=== PATIENT | female | born 1965 | race Caucasian/White ===

== ENCOUNTER → 2016-11-09 | Outpatient (CLI) | payer OTHER | LOC: FIMAGING 15:35 | PROVIDERS: ATTEND Family Medicine | DX: Z12.31 Encounter for screening mammogram for malignant neoplasm of breast (principal) | CPT/HCPCS: G0202 ==

== ENCOUNTER 2017-08-07 10:49 | Inpatient (IN) | payer OTHER ==
--- NOTE | 2017-08-07 11:33 | EDPHY ---
H & P Stated Complaint: "Ulcerative colitis" symptoms for 1 month. Time Seen by Provider: 08/07/17 11:17 HPI/ROS: CHIEF COMPLAINT: "Ulcerative colitis flare" HISTORY OF PRESENT ILLNESS: 52-year-old female history of ulcerative colitis, S2 of psoriasis and psoriatic arthritis states that in May she was started on Cosentix for her psoriasis. She received a total of 4 treatments over 4 weeks and states that since completing this this exacerbated her ulcerative colitis symptoms. For the past 1 month she has been experiencing intractable bloody diarrhea, has been unable to eat secondary to causing abdominal discomfort, cramping and diarrhea which occurs usually within 10 min of having any food product. She was started on prednisone 40 mg daily 1 month ago by her dovetail machine operator and remains symptomatic.She feels that she is nonadequately hydrated and nourished. PRIMARY CARE PROVIDER: Deisy Diaz. Primary gastroenterology: [facility] REVIEW OF SYSTEMS: A ten point review of systems was performed and is negative with the exception of the items mentioned in the HPI PAST MEDICAL & SURGICAL HISTORY: Ulcerative colitis. Psoriasis. Psoriatic arthritis. SOCIAL HISTORY: PHYSICAL EXAM (Prior to examination, patient consented to physical exam, hands were washed and my usual and customary physical exam procedures followed) 1) GENERAL: thin, alert and oriented. Appears to be in no acute distress. 2) HEAD: Normocephalic, atraumatic 3) HEENT: Pupils equal, round, reactive to light bilaterally. Sclera anicteric. Nasopharynx, oropharynx, clear, no lesions. Dry mucous membrane 4) NECK: Full range of motion, no meningeal signs. 5) LUNGS: Clear auscultation bilaterally, no wheezes, no rhonchi, no retractions. 6) HEART: Regular rate and rhythm, no murmur, no heave, no gallop. 7) ABDOMEN: No guarding, no rebound, no focal tenderness, negative McBurney's, negative Mckeon's, negative Rovsing's, negative peritoneal sign, unable to elicit abdominal pain on exam 8) MUSCULOSKELETAL: Moving all extremities, no focal areas of tenderness, no obvious trauma. No peripheral edema or discoloration. 9) BACK: No CVA tenderness, no midline vertebral tenderness, no fluctuance, no step-off, no obvious trauma, no visual or palpable abnormality. 10) SKIN: No rash, no petechiae. 11) Psychiatric: Patient is oriented X 3, there is no agitation. DIFFERENTIAL DIAGNOSIS: In no particular include but limited to GI bleed, ulcerative colitis flare, acute surgical abdominal pathology - Personal History LMP (Females 10-55): Irregular Current Tetanus Diphtheria and Acellular Pertussis (TDAP): Yes - Medical/Surgical History Hx Asthma: No Hx Chronic Respiratory Disease: No Hx Diabetes: No Hx Cardiac Disease: No Hx Renal Disease: No Hx Cirrhosis: No Hx Alcoholism: No Hx HIV/AIDS: No Hx Splenectomy or Spleen Trauma: No Other PMH: Ulcerative colitis. Psoriasis. - Social History Smoking Status: Never smoked Constitutional: Initial Vital Signs Temperature (C) 36.9 C 08/07/17 10:54 Heart Rate 102 H 08/07/17 10:54 Respiratory Rate 16 08/07/17 10:54 Blood Pressure 110/87 H 08/07/17 10:54 O2 Sat (%) 95 08/07/17 10:54 O2 Delivery Mode Room Air Allergies/Adverse Reactions: gluten Allergy (Verified 08/07/17 10:59) Home Medications: Medication Instructions Recorded Prednisone 08/07/17 Medical Decision Making ED Course/Re-evaluation: 12:50 p.m.: Patient has been re-evaluated with serial examinations. She provided a stool sample in the ER which was grossly bloody. I will contact gastroenterology and plan on likely admission. Care of patient under supervision of secondary supervising physician Dr Guan . 12:53 p.m.: Consultation Dr. Allen Schulte who agrees to consultation 1:10 p.m.: Consultation with hospitalist Sabrina, admit to Dr. Dominic Alvarez - Data Points Laboratory Results: Laboratory Results 08/07/17 11:05 08/07/17 11:05 08/07/17 08/07/17 08/07/17 12:17 11:05 11:05 WBC RBC Hgb Hct MCV MCH MCHC RDW Plt Count MPV Neut % (Auto) Lymph % (Auto) [place] % (Auto) Eos % (Auto) Baso % (Auto) Nucleat RBC Rel Count Absolute Neuts (auto) Absolute Lymphs (auto) Absolute Monos (auto) Absolute Eos (auto) Absolute Basos (auto) Absolute Nucleated RBC Immature Gran % Seg Neutrophils % Band Neutrophils % Lymphocytes % Monocytes % Immature Gran # Absolute Seg Neuts Absolute Band Neuts Absolute Lymphocytes Absolute Monocytes Platelet Estimate Polychromasia PT 14.2 SEC SEC (12.0-15.0) INR 1.08 (0.83-1.16) APTT 24.4 SEC SEC (23.0-38.0) Sodium Potassium Chloride Carbon Dioxide Anion Gap BUN Creatinine Estimated GFR Glucose Calcium Total Bilirubin Conjugated Bilirubin Unconjugated Bilirubin AST ALT Alkaline Phosphatase Total Protein Albumin Lipase Beta HCG, Qual NEGATIVE Stool Occult Bld Scrn POSITIVE H (NEGATIVE) 08/07/17 08/07/17 11:05 11:05 WBC 15.98 10^3/uL H 10^3/uL (3.80-9.50) RBC 4.13 10^6/uL L 10^6/uL (4.18-5.33) Hgb 12.8 g/dL g/dL (12.6-16.3) Hct 37.1 % L % (38.0-47.0) MCV 89.8 fL fL (81.5-99.8) MCH 31.0 pg pg (27.9-34.1) MCHC 34.5 g/dL g/dL (32.4-36.7) RDW 12.1 % % (11.5-15.2) Plt Count 391 10^3/uL 10^3/uL (150-400) MPV 9.7 fL fL (8.7-11.7) Neut % (Auto) [employer] Lymph % (Auto) [employer] [place] % (Auto) [employer] Eos % (Auto) [employer] Baso % (Auto) [employer] Nucleat RBC Rel Count [employer] Absolute Neuts (auto) [employer] Absolute Lymphs (auto) [employer] Absolute Monos (auto) [employer] Absolute Eos (auto) [employer] Absolute Basos (auto) [employer] Absolute Nucleated RBC [employer] Immature Gran % [employer] Seg Neutrophils % 42 % % Band Neutrophils % 54 % % Lymphocytes % 3 % % Monocytes % 1 % % Immature Gran # [employer] Absolute Seg Neuts 6.71 10^/uL H 10^/uL (1.70-6.50) Absolute Band Neuts 8.63 10^3/uL H 10^3/uL (0.00-0.70) Absolute Lymphocytes 0.48 10^3/uL L 10^3/uL (1.00-3.00) Absolute Monocytes 0.16 10^3/uL L 10^3/uL (0.30-0.80) Platelet Estimate ADEQUATE (ADEQ) Polychromasia 1+ H PT INR APTT Sodium 134 mEq/L L mEq/L (135-145) Potassium 3.9 mEq/L mEq/L (3.5-5.2) Chloride 97 mEq/L mEq/L (97-110) Carbon Dioxide 25 mEq/l mEq/l (22-31) Anion Gap 12 mEq/L mEq/L (8-16) BUN 12 mg/dL mg/dL (7-23) Creatinine 0.7 mg/dL mg/dL (0.6-1.0) Estimated GFR > 60 Glucose 101 mg/dL H mg/dL (70-100) Calcium 8.9 mg/dL mg/dL (8.5-10.4) Total Bilirubin 0.7 mg/dL mg/dL (0.1-1.4) Conjugated Bilirubin 0.5 mg/dL mg/dL (0.0-0.5) Unconjugated Bilirubin 0.2 mg/dL mg/dL (0.0-1.1) AST 14 IU/L IU/L (14-46) ALT 25 IU/L IU/L (9-52) Alkaline Phosphatase 86 IU/L IU/L (38-126) Total Protein 6.5 g/dL g/dL (6.3-8.2) Albumin 3.2 g/dL L g/dL (3.5-5.0) Lipase 43 IU/L IU/L (23-300) Beta HCG, Qual Stool Occult Bld Scrn Medications Given: Discontinued Medications Sodium Chloride (Ns) 1,000 mls @ 0 mls/hr IV ONCE ONE PRN Reason: Wide Open Stop: 08/07/17 12:48 Last Admin: 08/07/17 12:51 Dose: 1,000 mls Departure - Departure Disposition: [facility] Inpatient Acute Clinical Impression: GI bleed Qualifiers: GI bleed type/associated pathology: unspecified gastrointestinal hemorrhage type Qualified Code(s): K92.2 - Gastrointestinal hemorrhage, unspecified Ulcerative colitis Qualifiers: Ulcerative colitis location: other ulcerative colitis Digestive disease complication type: other complication Qualified Code(s): K51.818 - Other ulcerative colitis with other complication Condition: Fair Referrals: Deisy Lima MD [Primary Care Provider] - As per Instructions
[2017-08-07 11:38] LABS: PLATELET COUNT 391 10^3/uL (150-400)
[2017-08-07] MEDS ORDERED: NS 1,000 ML IV ONE (12:47)
[2017-08-07 13:06] LABS: INR 1.08 (0.83-1.16); PROTIME(PATIENT) 14.2 SEC (12.0-15.0)
--- NOTE | 2017-08-07 14:24 | GCON ---
[f rep st] CONSULTATION DATE OF CONSULTATION: 08/07/2017 REQUESTING PHYSICIAN: Sabrina Brannon NP REASON FOR CONSULTATION: Diarrhea, hematochezia, abdominal pain. Dear Sabrina: Thank you very kindly for asking me to evaluate your patient in consultation for a chief complaint of bloody diarrhea. She is a pleasant 52-year-old female with left-sided ulcerative colitis who has be en placed on prednisone through my practice about 4 weeks ago for a flare of colitis. She has been p rogressively worsening despite the use of 40 mg of prednisone daily. She describes multiple frequent bowel movements with urgency and blood. There is left lower quadrant abdominal pain and she has als o reported a low-grade fever. Having a bowel movement seems to escalate the discomfort and then it c an improve. She has been suffering with a poor appetite and been losing weight because every time sh e eats she has diarrhea. She denies any foreign travel or recent antibiotic use. In regard to her ulcerative colitis, her last flexible sigmoidoscopy was done in early July by Dr. Kory Castellnaos and disclosed left-sided colitis of moderate severity to the extent of the exam which was to the sigmoid colon. Her previous only other completed total colonoscopy was in [address] Radha fisher and revealed colitis involving the sigmoid and rectum and maybe part of the descending colon, b ut was otherwise unremarkable. Biopsies of both the colonoscopy and flexible sigmoidoscopy are consi stent with inflammatory bowel disease of moderate activity. The patient has been on Enbrel for psori atic arthritis and psoriasis as well as Humira. However, these resulted in a peripheral neuropathy a nd had to be discontinued. This more recent bout of ulcerative colitis flare seemed to be triggered by the initiation of a new biologic for her psoriasis, which has since been discontinued. She has be en using Canasa suppositories once at each evening, but is not able to hold the suppository in for ve ry long and does not feel these have been effective. She has been nauseous, but has had no vomiting. I am asked to assist with further evaluation and management. PAST MEDICAL HISTORY: Significant for 1. Cutaneous psoriasis. 2. Psoriatic arthritis. 3. Left-sided ulcerative colitis. SURGICAL HISTORY: None. MEDICATIONS ON ADMISSION: Include multivitamin, some nutritional supplements. She had been on Apris o 4 pills once daily recently, but this was discontinued. Canasa suppositories 1 g p.r. at bedtime f or the last 6 days, prednisone 40 mg daily. Recently Cosentyx started for psoriasis and received a to anita of 4 treatments, but this has been discontinued. ALLERGIES: Humira, Enbrel, Cosentyx, gluten. SOCIAL HISTORY: No tobacco. No alcohol. No substance abuse. 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 She has 1 child. She lives in [place]. FAMILY HISTORY: Negative for Crohn disease, celiac disease, or ulcerative colitis. REVIEW OF SYSTEMS: CONSTITUTIONAL: Malaise, fatigue, subjective fever and chills. HEENT: Denies he adache, visual disturbances, rhinorrhea, sore throat, ear pain. PULMONARY: Negative for cough, short ness of breath. CARDIOVASCULAR: Negative for chest pain or palpitations. GI: Significant for diar amrita, hematochezia, urgency, tenesmus, left lower quadrant pain and nausea. She denies heartburn or dysphagia. There has been no vomiting. She denies any melena. RHEUMATOLOGIC: She reports having clarita int pain, but this has been stable and she manages this "with diet." She denies any focal joint swel ling, tenderness or warmth. DERMATOLOGIC: She reports psoriasis that is still active and mostly on h er lower extremities. NEUROLOGIC: Denies any active paresthesias, but has noted this with previous biologic therapies. No focal motor weakness. No seizure. No falls. No tremor. GENITOURINARY: No hematuria or dysuria. No flank pain. GYNECOLOGIC: No vaginal bleeding or discharge. PSYCHIATRIC: She has been having insomnia and some anxiety since starting prednisone. PHYSICAL EXAM: VITAL SIGNS: Blood pressure is 100/59 with a mean arterial pressure of 72, heart rat e is between 70 and 100 with improvement of her heart rate to 73 with IV fluid resuscitation. Oxygen ation is 96% on room air. Respirations are 16. Temperature is 36.9. GENERAL: Pale, somewhat chronic ally ill-appearing female but no acute distress. HEENT: Normocephalic, atraumatic. Oropharynx bobby r. Mucous membranes are slightly dry. Nasal mucosa is normal. Oropharynx is clear. NECK: Supple. No lymphadenopathy to the anterior cervical chain. PULMONARY: Clear to auscultation bilaterally. CARDIOVASCULAR: Regular rate and rhythm rate and rhythm without murmur, rub, or gallop. GI: The abd omen is soft and nontender. Normal bowel sounds. No rebound or guarding. No organomegaly, ascites, or abdominal bruit. No herniation. EXTREMITIES: No cyanosis, clubbing, edema. Normal gait and st ation. NEUROLOGIC: Alert to person, place, and time. Cranial nerves are normal. DATABASE: Includes the following: White blood count is 15.9, hematocrit 37.1, platelets are 391. IN R is 1.08 with a PT of 14.2, PTT is 24.4. Stool is positive for occult blood. Sodium is 134, potass ium 3.9, chloride 97, bicarbonate 25, BUN 12, creatinine 0.7, glucose 101, calcium 8.9, total bilirub in 0.7 with a conjugated of 0.5, AST 14, ALT 25, alkaline phosphatase 86, albumin 3.2, lipase 43. Be ta HCG is negative. IMPRESSION: 1. Left lower quadrant abdominal pain. 2. Hematochezia. 3. Chronic diarrhea. 4. Psoriatic arthritis. 5. Cutaneous psoriasis. 6. Ulcerative colitis, left-sided. RECOMMENDATIONS: 1. Admit to hospital for IV fluid resuscitation and initiation of IV Solu-Medrol 40 mg IV q.6. 2. Discontinue oral prednisone. 3. Discontinue Canasa suppositories. 4. Stool PCR and culture. 5. Clear liquid diet with advancement as tolerated but I think I would leave her on clear liquids fo r today just to help more with comfort and hydration and not advance her diet too much as this may wo rsen her diarrhea. 6. If she fails to improve within the next 24-48 hours, a colonoscopy will be repeated to assess the degree and severity of her disease and obtain tissue biopsies to exclude other causes and to help as sess diagnostic certainty of her illness. 7. If she improves with IV Solu-Medrol, I would again bridge her back to oral prednisone and then tr y to initiate an outpatient plan for Remicade therapy as long as her disease seemed to be consistent with active ulcerative colitis as the cause. This will need to be considered carefully as she did de velop neuropathy with both Humira and Enbrel. 8. Discontinue all mesalamine preparations at the current time as sometimes these can paradoxically worsen diarrhea. 9. A.m. CBC and chemistries. 10. Further recommendations to follow. /[id number]/MODL
[2017-08-07] MEDS ORDERED: HYDROCODONE/APAP 5/325 TAB PO PRN (15:55)
[2017-08-07] MEDS ORDERED: LORazepam 2 MG/ML INJ IVP PRN (15:55)
[2017-08-07] MEDS ORDERED: PROMETHAZINE HCL 25 MG/ML INJ IVP PRN (15:55)
[2017-08-07] MEDS ORDERED: HYDROmorphone HCL/NS 0.5 MG/ML SYR IVP PRN (15:55)
[2017-08-07] MEDS ORDERED: NS W/ 20 KCl/L 1,000 ML IV SCH (16:00)
[2017-08-07] MEDS: methylPREDNISolone SOD SUCC 40 MG/ML VIAL IVP SCH ×2 (17:55→23:33)
--- NOTE | 2017-08-07 18:50 | GHP ---
[f rep st] HISTORY AND PHYSICAL DATE OF ADMISSION: 08/07/2017 CHIEF COMPLAINT: Hematochezia and abdominal pain. HISTORY OF PRESENT ILLNESS: The patient is a pleasant 52-year-old female with a past medical history of ulcerative colitis, psoriasis, and psoriatic arthritis, who presented to the [facility] Emergency Room after several weeks of frequent bowel movements and bloody stools. She states, in early May, she was started on Cosentyx for her psoriasis. It was shortly after that time sh e started developing worsening abdominal symptoms including bloody stools. She states her stools hav e been rather frequent, occurring 10-15 times per day. She has had some associated chills at times. She has not taken any antibiotic therapy over the past several months. With the persistence of her symptoms, she did schedule a consult with her production material handler approximately [address] arted on prednisone. Despite this, however, her symptoms have persisted. Dr. Schulte was consulted in the emergency room, and patient has been started on Solu-Medrol 40 mg IV q.6 hours. A GI pathogen p santos has also been ordered as well for further investigation. PAST MEDICAL HISTORY: 1. Ulcerative colitis. 2. Psoriasis. 3. Psoriatic arthritis. PAST SURGICAL HISTORY: . MEDICATIONS: 1. Prednisone 40 mg daily, started approximately 1 month ago. 2. Mesalamine 1000 mg per rectum nightly. 3. Melatonin 3 mg nightly. 4. Cosentyx recently started in early May, but stopped at this time. ALLERGIES: 1. Gluten. 2. Potato. FAMILY HISTORY: Mother and father are both living. Her father has a history of obesity and hyperten marck. Her mother has a history of lymphoma. SOCIAL HISTORY: The patient is . She has 1 child. She is a nonsmoker. She does not drink a lcohol. 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 REVIEW OF SYSTEMS: CONSTITUTIONAL: Positive for chills. ENT: No recent upper respiratory illnesse s. CARDIOVASCULAR: No complaints of chest pains, palpitations, or syncopal episodes. RESPIRATORY: No complaints of shortness of breath or pleuritic-type chest pains. GI: Positive for frequent stoo ls, bloody in nature, lower abdominal cramping. No nausea or vomiting. : No report of any diffic ulty with urination. NEUROLOGIC: No complaints of headaches or focal weakness. HEMATOLOGIC: No hi story of any prior deep vein thrombosis or pulmonary embolism. PSYCHIATRIC: No history of anxiety o r depression. ENDOCRINE: No history of thyroid abnormalities or diabetes. SKIN: Other than psoria tic arthritis, no recent different skin rashes. MUSCULOSKELETAL: No focal joint pain complaints tod ay. PHYSICAL EXAM: VITAL SIGNS: Temperature 36.9, blood pressure 100/59, heart rate 73, respirations 16 , saturating 96% on room air. GENERAL: The patient appears mildly uncomfortable. No acute distress . However, she is awake, alert, conversant, able to provide a good history. HEENT: Extraocular mov ements intact. Pupils equal. No scleral icterus is noted. NECK: Supple. No adenopathy. CHEST: Clear on auscultation. Normal respiratory effort. HEART: Regular rate and rhythm. No murmurs note d. ABDOMEN: Nondistended. Bowel sounds are hyperactive. Tenderness in the left lower quadrant but nontender throughout. No rebound tenderness present. : No Hoyt catheter in place. EXTREMITIES: No significant pitting edema. NEUROLOGIC: Cranial nerves 2-12 are grossly intact with 5/5 strengt h in extremities. LABS: White blood cell count is 15, hemoglobin 12, platelets 391. Sodium 134, potassium 3.9, chlori de 97, bicarb 25, BUN 12, creatinine 0.7, glucose 101. INR is 1.0, PTT 24. AST 14, ALT 25, alkaline phosphatase 86, bilirubin is 0.7. ASSESSMENT AND PLAN: 1. Ulcerative colitis flare. I appreciate Dr. Schulte's assistance on the case. Solu-Medrol has been started. A GI pathogen panel, as well, has been ordered for further assessment. I have started int ravenous fluids. The patient has a clear liquid diet, at the current time. Repeat labs have been or dered for the morning for reassessment. 2. Leukocytosis, possibly steroid effect. She has been on prednisone recently. Monitor for any fev ers. 3. Psoriasis. May need to consider alternative treatment regimens besides Cosentyx if this is felt to play a role with her worsening ulcerative colitis symptoms. 4. Deep vein thrombosis prophylaxis. No Lovenox or heparin in light of bleeding. Compression devic es are in place currently. DISPOSITION: I will admit her under inpatient status as it will likely take more than 2 midnights to stabilize her situation. /[id number]/MODL
[2017-08-07] MEDS ORDERED: NS 1,000 ML IV SCH (19:30)
[2017-08-07] MEDS: MELATONIN 3 MG TAB PO SCH (20:19)
[2017-08-08] MEDS: methylPREDNISolone SOD SUCC 40 MG/ML VIAL IVP SCH ×4 (06:14→23:25)
[2017-08-08 08:16] LABS: PLATELET COUNT 386 10^3/uL (150-400)
--- NOTE | 2017-08-08 09:33 | PDMN ---
Medical Necessity Medical necessity: M565 inflammatory bowel disease: A-2 days: bloody diarrhea, abd pain, freq bloody stools, further monitoring and tx needed including, IV fluids, IV solumedrol, clear diet, further labs in am., leukocytosis, psoriasis , anticipate > 2 midnights med nec tx.
--- NOTE | 2017-08-08 10:35 | SOAPPROG ---
SOAP Progress Note Assessment/Plan: Assessment: 1. UC flair 2. Hematochezia 3. Abdominal pain LLQ 4. Diarrhea Plan: 1. Continue IV solumedrol unchanged today 2. AM CBC and lytes 3. Advance diet today 4. Discussion about possible remicaid treatment with patient today as a future option for UC and psoriasis. 5. Will follow 08/08/17 10:32 Subjective: CC: Diarrhea Improved. Slept 34 hours. Ate liquid diet well. No N/V or fever. Much improved with hematochezia. Less abdominal pain Objective: Vital Signs Temp Pulse Resp BP Pulse Ox 36.7 C 69 12 108/70 98 08/08/17 07:41 08/08/17 07:41 08/08/17 07:41 08/08/17 07:41 08/08/17 07:41 Microbiology 08/07/17 17:23 Gastrointestinal Tract Panel (PCR) - Final Stool No Organism Detected Laboratory Results 08/08/17 08:09 08/08/17 08:09 08/07/17 08/08/17 08/09/17 05:59 05:59 05:59 Intake Total 1999 1245 Balance 1999 1245 PT 14.2 SEC (12.0-15.0) 08/07/17 11:05 INR 1.08 (0.83-1.16) 08/07/17 11:05 Physical Exam - Physical Exam General Appearance: WD/WN, no apparent distress EENT: normal ENT inspection, No scleral icterus (R), No scleral icterus (L) Neck: supple Respiratory: lungs clear Cardiac/Chest: regular rate, rhythm Abdomen: normal bowel sounds, non-tender, soft, No distended, No guarding, No rebound Back: Normal inspection Skin: warm/dry, pallor, No jaundice Extremities: No pedal edema Neuro/Psych: normal mood/affect, oriented x 3 ICD10 Worksheet Patient Problems: Problems Problem Status Onset GI bleed Acute Ulcerative colitis Acute
--- NOTE | 2017-08-08 11:27 | ASMTCASEMG ---
Living Arrangements What is your living Answers: With Spouse arrangement? Who do you live with? Type Of Residence What kind of residence do Answers: House you live in? Discharge Plan Comments Coordination Status Comments Notes: Pt is a 52 y/o female admitted for ulcerative colitis flare and a GI bleed. Pt will most likely d/c independent when medically stable. No therapies ordered at this time. CM to follow. Plan: TBD Date Signed: 08/08/2017 11:26 AM Electronically Signed By:JULES Haynes
--- NOTE | 2017-08-08 12:32 | HOSPPROG ---
Hospitalist Progress Note Assessment/Plan: This is a 52 y/o female who presents with bloody stools and abd pain. She had chills. She has a past medical hx of ulcerative colitis, psoriasis, psoriatic arthritis. She did see her voice over artist who started her on prednisone one month ago, but she continued to have frequent bowel movements. This is my first encounter with the patient. Chart reviewed. #ulcerative colitis exacerbation -GI consult -IV methylprednisone -ADAT to regular -having less stools today #leukocytosis -likely related to above -GI PCR negative -recheck labs in am #hematochezia -Stool Occult Blood positive -recheck CBC in am #Anemia -likely r/t to above -follow -recheck CBC in am #Psoriasis -holding Cosentyx -monitor skin #underweight w a BMI of 18 -fibrous wallboard inspector came to see her #DVT prophylaxis -enoxaparin/heparin contraindicated -continue SCDs and ambulation Plan: Discussed/coordinated care with Dr. Schulte. Continue above treatment. Subjective: Pt states she feels better, reports less blood in her stool, and less frequent bowel movements. Objective: Vital Signs Temp Pulse Resp BP Pulse Ox 36.6 C 67 16 106/66 96 08/08/17 11:10 08/08/17 11:10 08/08/17 11:10 08/08/17 11:10 08/08/17 11:10 Microbiology 08/07/17 17:23 Gastrointestinal Tract Panel (PCR) - Final Stool No Organism Detected Laboratory Results 08/08/17 08:09 08/08/17 08:09 08/07/17 08/08/17 08/09/17 05:59 05:59 05:59 Intake Total 1999 1245 Balance 1999 1245 PT 14.2 SEC (12.0-15.0) 08/07/17 11:05 INR 1.08 (0.83-1.16) 08/07/17 11:05 - Physical Exam Constitutional: no apparent distress, other (thin) Eyes: PERRL Cardiovascular: regular rate and rhythym Respiratory: clear to auscultation Gastrointestinal: normoactive bowel sounds, tenderness (LLQ to light palpation) , other (nondistended, soft, flat abdomen) Skin: warm, other (red, dry patches localized to BLE), No normal color (pale) Musculoskeletal: full muscle strength Neurologic: AAOx3 Psychiatric: interacting appropriately ICD10 Worksheet Patient Problems: Problems Problem Status Onset GI bleed Acute Ulcerative colitis Acute
[2017-08-08] MEDS: MELATONIN 3 MG TAB PO SCH (20:20)
[2017-08-09] MEDS: methylPREDNISolone SOD SUCC 40 MG/ML VIAL IVP SCH ×3 (05:23→18:22)
[2017-08-09] MEDS: ACETAMINOPHEN 325 MG TAB PO PRN (05:23)
--- NOTE | 2017-08-09 13:03 | HOSPPROG ---
Hospitalist Progress Note Assessment/Plan: This is a 52 y/o female who presents with bloody stools and abd pain. She had chills. She has a past medical hx of ulcerative colitis, psoriasis, psoriatic arthritis. She did see her cleat maker who started her on prednisone one month ago, but she continued to have frequent bowel movements. This is my first encounter with the patient. Chart reviewed. 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 Schulte. Continue above treatment. Subjective: Having some pain and discomfort. Afraid to eat. Objective: Vital Signs Temp Pulse Resp BP Pulse Ox 36.5 C 57 L 16 115/71 99 08/09/17 11:53 08/09/17 11:53 08/09/17 11:53 08/09/17 11:53 08/09/17 11:53 Laboratory Results 08/09/17 05:08 08/09/17 05:08 08/08/17 08/09/17 08/10/17 05:59 05:59 05:59 Intake Total 1999 1245 Balance 1999 1245 PT 14.2 SEC (12.0-15.0) 08/07/17 11:05 INR 1.08 (0.83-1.16) 08/07/17 11:05 - Physical Exam Constitutional: appears nourished, chronically ill appearing, uncomfortable Eyes: PERRL, anicteric sclera, EOMI Ears, Nose, Mouth, Throat: moist mucous membranes, hearing normal, ears appear normal Cardiovascular: No JVD, No tachycardia, No edema Respiratory: no respiratory distress, no rales or rhonchi, clear to auscultation Gastrointestinal: tenderness, No ascites, No guarding Skin: warm, normal color, No mottled Musculoskeletal: normal joint ROM, no joint effusions, generalized weakness Neurologic: AAOx3 Psychiatric: interacting appropriately, not anxious, not encephalopathic, thought process linear ICD10 Worksheet Patient Problems: Problems Problem Status Onset GI bleed Acute Ulcerative colitis Acute
--- NOTE | 2017-08-09 15:32 | SOAPPROG ---
SOAP Progress Note Assessment/Plan: Assessment: 1. UC flair 2. Hematochezia 3. Abdominal pain LLQ 4. Diarrhea Plan: 1. Continue IV solumedrol 40mg IV q6hrs 2. AM CBC and lytes in AM 3. Advance diet today 4. Discussion about possible remicaid treatment with patient today as a future option for UC and psoriasis. 5. Will consider IV iron to help bolster Hct and improve anemia 6. If fails to improve will need a repeat colonoscopy with biopsy and discussions based on these findings of initiation of induction therapy with remicaid 7. Plan discussed with hospitalist Erica Guerra. 8. Will add canasa suppositories 1 NC BID 08/09/17 15:32 08/09/17 15:58 Subjective: CC: Ongoing diarrhea and bloody bowel movement. Stool PCR negative. Eating but still feels fatigued. Objective: Vital Signs Temp Pulse Resp BP Pulse Ox 36.5 C 57 L 16 115/71 99 08/09/17 11:53 08/09/17 11:53 08/09/17 11:53 08/09/17 11:53 08/09/17 11:53 Laboratory Results 08/09/17 05:08 08/09/17 05:08 08/08/17 08/09/17 08/10/17 05:59 05:59 05:59 Intake Total 1999 1245 Balance 1999 1245 PT 14.2 SEC (12.0-15.0) 08/07/17 11:05 INR 1.08 (0.83-1.16) 08/07/17 11:05 Physical Exam - Physical Exam General Appearance: no apparent distress EENT: normal ENT inspection Neck: supple Respiratory: lungs clear Cardiac/Chest: regular rate, rhythm Abdomen: normal bowel sounds, non-tender, soft, No organomegaly, No distended, No guarding, No rebound, No ascites Rectal: No normal exam Back: No CVA tenderness Skin: pallor, No diaphoresis, No jaundice Lymphatic: no adenopathy Neuro/Psych: normal mood/affect, oriented x 3 ICD10 Worksheet Patient Problems: Problems Problem Status Onset GI bleed Acute Ulcerative colitis Acute
[2017-08-09] MEDS: MELATONIN 3 MG TAB PO SCH (21:14)
[2017-08-09] MEDS: MESALAMINE 1,000 MG SUPP PR SCH (21:14)
[2017-08-10] MEDS: methylPREDNISolone SOD SUCC 40 MG/ML VIAL IVP SCH ×4 (00:51→18:38)
--- NOTE | 2017-08-10 07:59 | SOAPPROG ---
SOAP Progress Note Assessment/Plan: Assessment: 1. UC flair 2. Hematochezia 3. Abdominal pain LLQ 4. Diarrhea Plan: 1. Continue IV solumedrol 40mg IV q6hrs 2. AM CBC and lytes in AM 3. Chelsea was stated yesterday at BID and is helping some 4. Will try to bridge to po steroids tomorrow 5. She does not want to start Remicaid at this time 08/10/17 07:55 Subjective: CC: Diarrhea Hematochezia Some improvement in frequency of stools. Still bloody. Less urgency. No real abdominal pain. No fever Stool PCR negative Objective: Vital Signs Temp Pulse Resp BP Pulse Ox 36.7 C 54 L 15 95/65 L 97 08/10/17 04:00 08/10/17 04:00 08/10/17 04:00 08/10/17 04:00 08/10/17 04:00 Laboratory Results 08/09/17 05:08 08/09/17 05:08 08/09/17 08/10/17 08/11/17 05:59 05:59 05:59 Intake Total 1245 Balance 1245 PT 14.2 SEC (12.0-15.0) 08/07/17 11:05 INR 1.08 (0.83-1.16) 08/07/17 11:05 Physical Exam - Physical Exam General Appearance: WD/WN, no apparent distress EENT: normal ENT inspection Neck: supple Respiratory: lungs clear Cardiac/Chest: regular rate, rhythm Abdomen: normal bowel sounds, non-tender, soft Skin: pallor Lymphatic: no adenopathy Extremities: No pedal edema Neuro/Psych: alert, normal mood/affect, oriented x 3 ICD10 Worksheet Patient Problems: Problems Problem Status Onset GI bleed Acute Ulcerative colitis Acute
[2017-08-10] MEDS: ACETAMINOPHEN 325 MG TAB PO PRN (09:50)
[2017-08-10] MEDS: MESALAMINE 1,000 MG SUPP PR SCH ×2 (09:50→21:15)
--- NOTE | 2017-08-10 13:09 | HOSPPROG ---
Hospitalist Progress Note Assessment/Plan: This is a 52 y/o female who presents with bloody stools and abd pain. She had chills. She has a past medical hx of ulcerative colitis, psoriasis, psoriatic arthritis. She did see her frame feeder who started her on prednisone one month ago, but she continued to have frequent bowel movements. 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 Subjective: Feeling a bit better today. Still having frequent stools. Objective: Vital Signs Temp Pulse Resp BP Pulse Ox 36.4 C 73 16 102/60 94 08/10/17 11:59 08/10/17 11:59 08/10/17 11:59 08/10/17 11:59 08/10/17 11:59 Laboratory Results 08/09/17 05:08 08/09/17 05:08 08/09/17 08/10/17 08/11/17 05:59 05:59 05:59 Intake Total 1245 Balance 1245 PT 14.2 SEC (12.0-15.0) 08/07/17 11:05 INR 1.08 (0.83-1.16) 08/07/17 11:05 - Physical Exam Constitutional: chronically ill appearing, uncomfortable, cachectic Eyes: PERRL, anicteric sclera, EOMI Ears, Nose, Mouth, Throat: moist mucous membranes, hearing normal, ears appear normal Cardiovascular: regular rate and rhythym, No JVD, No edema Respiratory: no respiratory distress, no rales or rhonchi, clear to auscultation Gastrointestinal: tenderness, No ascites, No guarding Skin: warm, normal color, No mottled Musculoskeletal: full muscle strength, normal joint ROM, no joint effusions Neurologic: AAOx3 Psychiatric: interacting appropriately, not anxious, not encephalopathic, thought process linear ICD10 Worksheet Patient Problems: Problems Problem Status Onset GI bleed Acute Ulcerative colitis Acute
--- NOTE | 2017-08-10 16:42 | ASMTCMCOM ---
CM Note CM Note Notes: Spoke w/RN, plan remains the same, anticipate pt will dc home w/support of when medically stable. CM available for any changes. DC Plan: Independent Date Signed: 08/10/2017 04:41 PM Electronically Signed By:Shahida Boone RN
[2017-08-10] MEDS: MELATONIN 3 MG TAB PO SCH (21:15)
[2017-08-11] MEDS: methylPREDNISolone SOD SUCC 40 MG/ML VIAL IVP SCH ×2 (00:18→06:37)
[2017-08-11] MEDS ORDERED: SODIUM FERRIC GLUCONAT/SUCROSE 125 MG in NS 100 ML IV ONE (07:35)
--- NOTE | 2017-08-11 07:38 | SOAPPROG ---
SOAP Progress Note Assessment/Plan: Assessment: 1. UC flair 2. Hematochezia 3. Abdominal pain LLQ 4. Diarrhea Plan: 1. Better today. 2. Stop IV solumedrol 3. Start prednisone 40mg daily 4. Continue outpatient canasa 1g [place] qhs 5. Will add lialda 4.8gm daily as outpatient 6. IV iron today 7. IF doing well by afternoon then ok for discharge today with GI f/u in 2 weeks 08/11/17 07:35 Subjective: CC: Hematochezia and diarrhea Improved. Tolerating diet. 2 BMs last PM with much less blood and less diarrhea. No abdominal pain or fever. No N/V. Objective: Vital Signs Temp Pulse Resp BP Pulse Ox 37.1 C 58 L 12 114/73 96 08/11/17 04:00 08/11/17 04:00 08/11/17 04:00 08/11/17 04:00 08/11/17 04:00 Laboratory Results 08/11/17 05:14 08/11/17 05:14 08/10/17 08/11/17 08/12/17 05:59 05:59 05:59 Intake Total 250 200 Balance 250 200 PT 14.2 SEC (12.0-15.0) 08/07/17 11:05 INR 1.08 (0.83-1.16) 08/07/17 11:05 Physical Exam - Physical Exam General Appearance: WD/WN, no apparent distress EENT: normal ENT inspection, pharynx normal Respiratory: lungs clear, normal breath sounds Cardiac/Chest: regular rate, rhythm, systolic murmur Abdomen: normal bowel sounds, non-tender, soft, No distended, No guarding, No rebound Skin: normal color, warm/dry Lymphatic: no adenopathy Extremities: No pedal edema Neuro/Psych: alert, normal mood/affect, oriented x 3 ICD10 Worksheet Patient Problems: Problems Problem Status Onset GI bleed Acute Ulcerative colitis Acute
[2017-08-11] MEDS: MESALAMINE 1,000 MG SUPP PR SCH (08:06)
[2017-08-11 08:36] VITALS: BP 105/71
[2017-08-11] MEDS ORDERED: predniSONE 20 MG TAB PO SCH (09:00)
--- NOTE | 2017-08-11 10:27 | HOSPPROG ---
Hospitalist Progress Note Assessment/Plan: This is a 52 y/o female who presents with bloody stools and abd pain. She had chills. She has a past medical hx of ulcerative colitis, psoriasis, psoriatic arthritis. She did see her grant manager who started her on prednisone one month ago, but she continued to have frequent bowel movements. 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 Concerned about returning to work. Objective: Vital Signs Temp Pulse Resp BP Pulse Ox 36.3 C 76 18 105/71 100 08/11/17 08:00 08/11/17 08:00 08/11/17 08:00 08/11/17 08:00 08/11/17 08:00 Laboratory Results 08/11/17 05:14 08/11/17 05:14 08/10/17 08/11/17 08/12/17 05:59 05:59 05:59 Intake Total 250 200 Balance 250 200 PT 14.2 SEC (12.0-15.0) 08/07/17 11:05 INR 1.08 (0.83-1.16) 08/07/17 11:05 - Physical Exam Constitutional: appears nourished, other (thin) Eyes: PERRL Ears, Nose, Mouth, Throat: hearing normal Respiratory: no respiratory distress Skin: warm, No normal color (pale) Musculoskeletal: full muscle strength Neurologic: AAOx3 Psychiatric: interacting appropriately ICD10 Worksheet Patient Problems: Problems Problem Status Onset GI bleed Acute Ulcerative colitis Acute
--- NOTE | 2017-08-11 12:54 | GDS ---
[f rep st] DISCHARGE SUMMARY DISCHARGE DIAGNOSES: 1. Acute ulcerative colitis flare. 2. Leukocytosis. 3. Hematochezia. 4. Anemia. 5. Psoriasis. 6. Underweight with a BMI of 18. CONSULTATION: Dr. Allen Shculte. HISTORY: Briefly, the patient is a 52-year-old female who presented with bloody stools and abdominal pain. She had also associated chills. She has a past medical history of ulcerative colitis, psoriasis, and psoriatic arthritis. She saw her pot annealer who started her on prednisone a month ago, but she continued to have frequent bowel movements. During her stay, she was treated with IV steroids. She is markedly improved. She will follow up with Dr. Schulte in the outpatient setting. HOSPITAL COURSE: 1. Ulcerative colitis exacerbation, tolerating oral steroids. She has had less bloody stools. 2. Leukocytosis. This is related to the steroids and being sick. 3. Hematochezia. Her stool occult blood is definitely positive due to the ulcerative colitis. 4. Anemia, due to the above. 5. Psoriasis. Holding Cosentyx. 6. Underweight. She has a BMI of 19. Dietary came to see her. DISCHARGE CONDITION: Stable. Blood pressure is 105/71, heart rate is 76, respiratory rate is 18, O2 sats on room air 100%, temperature is 36.3 Celsius. MEDICATIONS AT DISCHARGE: Please see the EMR. DISCHARGE INSTRUCTIONS: 1. To stay on the prednisone as ordered. 2. Follow up with Dr. Schulte in 2 weeks. /[id number]/MODL MTDD
== END 2017-08-11 14:13 | disposition home or self-care (01) | DRG 386 ==
LOC: OBSVTOIN 13:09 → F3E 15:33
PROVIDERS: ADMIT Internal Medicine; ATTEND Internal Medicine
DX: K51.818 Other ulcerative colitis with other complication (principal); K92.1 Melena; D50.0 Iron deficiency anemia secondary to blood loss (chronic); D72.829 Elevated white blood cell count, unspecified; K52.9 Noninfective gastroenteritis and colitis, unspecified; L40.50 Arthropathic psoriasis, unspecified; L40.0 Psoriasis vulgaris; R10.32 Left lower quadrant pain; R63.6 Underweight; Z68.1 Body mass index [BMI] 19.9 or less, adult; Z91.018 Allergy to other foods
CPT/HCPCS: J2916; J2920; J7512

== ENCOUNTER → 2017-12-01 | Outpatient (CLI) | payer OTHER | LOC: FIMAGING 13:16 | PROVIDERS: ATTEND Family Medicine | DX: M81.0 Age-related osteoporosis without current pathological fracture (principal); Z79.52 Long term (current) use of systemic steroids ==

== ENCOUNTER → 2018-04-20 | Outpatient (CLI) | payer OTHER | LOC: BMCIMAGING 16:22 | PROVIDERS: ATTEND Physician Assistant | DX: M25.511 Pain in right shoulder (principal) ==